=== PATIENT | female | born 1960 | race Hispanic/Latino ===

== ENCOUNTER → 2019-07-03 | Day surgery (SDC) | payer OTHER ==
[2019-06-29 15:26] LABS: BASOPHILS # (AUTO) 0.1 (0.0-0.1); BASOPHILS % 0.8 % (0.0-1.0); EOSINOPHILS # (AUTO) 0.1 (0.0-0.4); EOSINOPHILS % 1.6 % (0.0-6.0); LYMPHOCYTES # (AUTO) 2.6 (1.0-3.2); LYMPHOCYTES % 33.2 % (18.0-39.1); MEAN CORPUSCULAR HEMOGLOBIN 29.7 pg (28-32); MEAN CORPUSCULAR HGB CONC 32.4 g/dL (31-35); MEAN CORPUSCULAR VOLUME 91.6 fL (81-99); MONOCYTES # (AUTO) 0.7 (0.2-0.8); MONOCYTES % 9.2 % (4.4-11.3); NEUTROPHILS # (AUTO) 4.2 (2.1-6.9); NEUTROPHILS % 54.9 % (38.7-80.0); PLATELET COUNT 341 x10e3/uL (140-360); RED BLOOD COUNT 4.04 x10e6/uL (3.6-5.1); RED CELL DISTRIBUTION WIDTH 14.1 % (11.7-14.4)
[2019-06-29 15:43] LABS: ANION GAP 12.6 mmol/L (8-16); BLOOD UREA NITROGEN 12 mg/dL (7-26); BUN/CREATININE RATIO 14 (6-25); CALCIUM 9.5 mg/dL (8.4-10.2); CARBON DIOXIDE 26 mmol/L (22-29); CHLORIDE 106 mmol/L (98-107); CREATININE, SERUM 0.85 mg/dL (0.57-1.11); EST GLOMERULAR FILTRATION RATE > 60 ML/MIN (60-); GLUCOSE 81 mg/dL (74-118); POTASSIUM 3.6 mmol/L (3.5-5.1); SODIUM 141 mmol/L (136-145)
--- NOTE | 2019-06-29 15:48 | Diagnostic Imaging Report ---
Chest, 2 views, 06/29/2019. History: Preop, foot surgery. Comparison: None available. Findings: The cardiomediastinal silhouette and pulmonary vasculature are within normal limits. The lungs are clear without evidence of consolidation or pleural effusion. Degenerative changes are present throughout the thoracic spine. Surgical screws are present in both humeral heads. There are no acute osseous or soft tissue abnormalities. Impression: No acute cardiopulmonary abnormality. Signed by: Rivas Barlow on 06/29/2019 3:44 PM
[~2019-07-03] MED LIST: ASPIR 8181 MG PO; ATORVASTATIN CA20 MG PO; BETAMETHASONE DISODIUM PHOS 6 MG/ML VIAL ONE; BUPIVACAINE HCL 0.5% INJ 30 ML VIAL INJ ONE; CEFAZOLIN SOD 1 GM/NS 50ML 100 ML IV ONE; DEXAMETHASONE SOD PHOS INJ 4 MG/ML VIAL ONE; EPHEDRINE SULFATE INJ 50 MG/10 ML SYR ONE; FENTANYL CITRATE/PF 100MCG/2 ML INJ ONE; GABAPENTIN300 MG PO; KETOROLAC TROMETHAMINE 30 MG/ML VIAL ONE; LIDOCAINE HCL 1% LOCAL INJ 20 ML VIAL ONE; LIDOCAINE HCL 2% LOCAL INJ 5 ML SDV VIAL INJ ONE; MIDAZOLAM HCL 2 MG/2 ML VIAL ONE; MULTI-VITAMIN1 EACH PO; MUPIROCIN 2% OINT 22 GM TUBE ONE; MYRBETRIQ50 MG PO; ONDANSETRON HCL INJ 2MG/ML 2ML 2 MG/ML VIAL ONE; OXYBUTYNIN CHLOR5 MG PO; PLAQUENIL200 MG PO; PROPOFOL IV EMULSION 10 MG/ML 20 ML VIAL ONE; SEVOFLURANE INHAL SOLN 250 ML PEN BTL ONE; SIMVASTATIN20 MG PO; SM NATURAL BAL100 MG PO; VIT D3 PO
--- OUTSIDE RECORDS SUMMARY | 2019-07-03 05:29 | XMS REPORT | Summary of Care ---
Author Author KENNY ECHEVERRIA M.D. [facility] Unknown Address Unknown Phone Unavailable Care Team Providers Care Immigration Law Specialist Name Role Phone KENNY ECHEVERRIA M.D. Unavailable Unavailable CARLOS YOON MD Unavailable Unavailable EARL MATHEWS, BARBARA JIMENEZ Unavailable Unavailable Functional Status Name Dates Details Functional status health issues are not documented Status: Name Dates Details Cognitive status health issues are not documented Status: Problems Name Dates Details Aftercare following surgery (V58.89, Z48.89) Status: Active Medications Name Dates Details Simvastatin TABS Active Pantoprazole Sodium 40 MG Intravenous Solution Reconstituted * Refills: 0 Active Celecoxib 200 MG Oral Capsule * Refills: 0 Active Oxybutynin Chloride ER 10 MG Oral Tablet Extended Release 24 Hour * Refills: 0 Active hydroCHLOROthiazide TABS * Refills: 0 Active Allergies and Adverse Reactions Name Dates Details No Known Drug Allergies (Allergy) Status: Active Past Medical History Name Dates Details History of Cervical dysphagia (787.29, R13.19) Status: Resolved History of Choking (933.1, T17.308A) Status: Resolved History of cough Status: Resolved History of heartburn (V12.79, Z87.898) Status: Resolved History of hiatal hernia (V12.79, Z87.19) Status: Resolved History of hypercholesterolemia (V12.29, Z86.39) Status: Resolved History of Overactive bladder (596.51, N32.81) Status: Resolved History of Postprandial epigastric pain (789.06, R10.13) Status: Resolved History of vomiting (V13.89, Z87.898) Status: Resolved Procedures Procedure Dates Details History of Hysterectomy Completed History of Section Completed History of Foot surgery Completed History of Shoulder Surgery Completed History of Elbow surgery Completed History of Toupet fundoplication laparoscopic Completed Immunization Name Dates Details Immunizations not documented Family History Name Dates Details No pertinent family history (V49.89, Z78.9) Status: Active Name Dates Details No pertinent family history (V49.89, Z78.9) Status: Active Social History Name Dates Details - Status: Name Dates Details Never smoker Vital Signs Date Test Result Details [id number] BP Systolic 145 mm[Hg] Status: Comments: Location: RUE; Position: Sitting BP Diastolic 84 mm[Hg] Status: Comments: Location: RUE; Position: Sitting Height 64 in Status: Weight 173.5 lb Status: Body Mass Index Calculated 29.78 kg/m2 Status: Body Surface Area Calculated 1.84 m2 Status: Temperature 98.4 f Status: Comments: Method: Oral Heart Rate 78 /min Status: Comments: Quality: Normal Respiration Rate 18 /min Status: Comments: Quality: Normal O2 SAT 95 % Status: Comments: Source: RA Results Date Description Value Details Results not documented Plan of Care Name Dates Details Planned Observations Planned Goals not documented Interventions Provided Plan* I will see her again in 9 months for a follow up Discussion/Summary* Indications of antireflux surgery include: complicated GERD such as a large hiatal hernia, presence of Jacobs's esophagus and/or intractable stricture and severe regurgitation and respiratory symptoms. Instructions Name Dates Details Instructions not documented Encounters Appointment; KENNY ECHEVERRIA M.D. Encounter Diagnosis: Problem not documented On: 18-Jan-2019 15:00 Appointment; KENNY ECHEVERRIA M.D. Encounter Diagnosis: Problem not documented On: 22-Feb-2019 7:45 Appointment; KENNY ECHEVERRIA M.D. Encounter Diagnosis: Problem not documented On: 24-May-2019 9:15
--- OUTSIDE RECORDS SUMMARY | 2019-07-03 05:29 | XMS REPORT ---
Author Author [facility] Address Unknown Phone Unavailable Care Team Providers Care Highway Painter Helper Name Role Phone JADON RASMUSSEN Unavailable Unavailable Problems This patient has no known problems. Allergies, Adverse Reactions, Alerts This patient has no known allergies or adverse reactions. Medications This patient has no known medications. Encounters Start Date/Time End Date/Time Encounter Type Admission Type Attending [facility] Care Department Encounter ID 2019-02-02 08:22:00 2019-02-02 08:22:00 Outpatient [id number] 2019-01-11 11:23:00 2019-01-11 11:23:00 Outpatient [id number] 2018-12-30 14:14:00 2018-12-30 14:14:00 Outpatient [id number] 2018-12-30 09:11:00 2018-12-30 09:11:00 Emergency E [id number] Results Test Description Test Time Test Comments Text Results Atomic Results Result Comments CHEST 2 VIEWS 2019-06-29 15:44:00 [facility] [address] [place] [address] Patient Name: ANÍBAL HASSAN MR #: [id number] : 1960 Age/Sex: 58/F Req #: [id number] Adm Physician: Ordered by: JADON RASMUSSEN DPM Report #: [id number] Location: OR Room/Bed: Procedure: [id number] DX/CHEST 2 VIEWS Exam Date: Exam Time: REPORT STATUS: Signed Chest, 2 views, 06/29/2019. History: Preop, foot surgery. Co mparison: None available. Findings: The cardiomediastinal silhouette and pulmonary vasculature are within normal limits. The lungs are clear without evidence of consolidation or pleural effusion. Degenerative changes are present throughout the thoracic spine. Surgical screws are present in both humeral heads. There are no acute osseous or soft tissue abnormalities. Impression: No acute cardiopulmonary abnormality. Signed by: Tyrone Barlow on 06/29/2019 3:44 PM Dictated By: TYRONE BARLOW MD [id number] Transcribed By: ANGY on 06/29/19 1543 COPY TO: JADON RASMUSSEN DPM
[2019-07-03 09:55] VITALS: BP 136/88
--- NOTE | 2019-07-03 10:20 | Diagnostic Imaging Report ---
EXAMINATION: FOOT LEFT AP LAT INDICATION: Postoperative COMPARISON: None FINDINGS: Portable AP and lateral radiographs of the left foot demonstrate immediate postoperative changes of first metatarsal osteotomy and fixation with a pin and threaded screw as well as K wire fixation across the fourth DLP and PIP joints. Alignment appears near-anatomic. No unexpected fracture. Surgical drain in place. Overlying gauze material obscures fine bony detail. IMPRESSION: Postoperative findings as above. Signed by: Adan Farias MD on 07/03/2019 10:17 AM
--- NOTE | 2019-07-03 11:26 | Operative Report ---
DATE OF PROCEDURE: 07/03/2019 SURGEON: Stef Carter DPM PREOPERATIVE DIAGNOSES: 1. Painful hallux valgus deformity, left foot. 2. Painful contracted hammertoes 4th digit, left foot. 3. Painful contracted hammertoes 5th digit, left foot. 4. Painful plantar calcaneal heel spur with plantar fasciitis, left foot. 5. Tarsal tunnel syndrome, left foot. POSTOPERATIVE DIAGNOSES: Confirmed. OPERATIVE PROCEDURES: 1. Josh bunionectomy with screw fixation of left foot. 2. Arthroplasty 4th digits with K-wire fixation of the 4th. 3. Arthroplasty 5th digits. 4. Resection of plantar calcaneal heel spur, left foot. 5. Neurolysis tibial nerve, left foot. 6. Neurolysis medial plantar nerve,left foot. 7. Neurolysis lateral plantar nerve, left foot. 8. Intraoperative use of fluoroscopy. 9. Trigger point shot of cortisone. 10. Application of posterior splint. ANESTHESIA: General. HEMOSTASIS: Pneumatic thigh tourniquet at 350 mmHg. PROCEDURE IN DETAIL: The patient was taken into the operating room, placed on the operating table in supine position. Following induction of general anesthesia by the anesthesiologist, Webril wraps were placed on the patient's left thigh followed by application of left thigh tourniquet. The left lower extremity was then prepped and draped in the usual aseptic manner following procedures then performed. Procedure #1: Josh bunionectomy with screw fixation of left foot. Attention was directed to the dorsal medial aspect of the 1st MPJ where a 6 cm linear incision was performed. Incision was deepened down to the joint capsule. Longitudinal capsulotomy was then performed exposing the dorsomedial exostosis of the 1st metatarsal head. Using oscillating saw, dorsomedial exostosis was excised from the operation site in toto a V-osteotomy was then performed from medial to lateral. Capital fragment was then transpositioned laterally. Upon adequate surgical and anatomical reduction utilizing proper AO technique, a 2.0 x 12 mm cortical screw in conjunction with a buried 0.045 K-wire was used to achieve stability of osteotomy site. All redundant bone medially was excised via the use of an oscillating saw and rotating bur. Procedure #2 and 3: Arthroplasty 4th and 5th digits with K-wire fixation of 4th. Attention was then directed to the dorsal aspect of the above-mentioned toes, where a 3 cm linear incision was performed. Incision was deepened down to the joint capsule. Transverse capsulotomy was then performed exposing the head of the proximal phalanx. Via the use of an oscillating saw, head of proximal phalanx these were excised from the operation site in toto. All rough and bony edges were rasped smooth. Fourth toe was still noted to be contracted so a 0.045 K-wire was introduced up to metatarsophalangeal joint to achieve proper anatomical reduction. Procedure #4: Resection of plantar calcaneal heel spur, left foot. Attention was then directed to the medial aspect of the left heel, where a 5 to 6 cm linear incision was performed. Incision was deepened down to the plantar fascia level. The medial one-half of the plantar fascia was resected from its insertion site, exposing the plantar calcaneal spur. Utilizing a reciprocating rasp, the plantar calcaneal spur was excised from the operation site in toto. Procedure #5, 6 and 7: Neurolysis tibial nerve, neurolysis medial plantar nerve and neurolysis of lateral plantar nerve of the left lower extremity. Attention was then directed to the medial aspect of the left talotibial joint where a curvilinear incision was performed posterior to the medial malleolus. The incision was deepened via sharp and blunt dissection being careful to retract any vital structures and ligate any superficial vessels as necessary. Utilizing meticulous dissection, the flexor retinaculum was then clearly visualized and cut exposing the tibial nerve. Utilizing blunt dissection, the tibial nerve was then neurolysed. The incision was then carried down to the saida pedis and followed down to the medial and lateral plantar nerves where the medial and lateral plantar nerves were also freed from any soft tissue adhesions via blunt dissection. All areas were then copiously flushed with sterile antibiotic solution and suction. Procedure #8: Intraoperative use of fluoroscopy was then used to make sure proper alignment fixation was achieved. Closure was then obtained utilizing 3-0 Vicryl, 4-0 Vicryl and 4-0 Nylon for capsule, subcutaneous tissue and skin respectively to the left. Procedure #9: Trigger point shot of cortisone was then given to the 1st and 4th interspace and also the medial aspect of the left heel. Then, approximately 15 mL of 0.5% plain Marcaine plus 10 mL of 1% Xylocaine plain were used to achieve local anesthesia of above-mentioned surgical area. Sterile dressing was applied. Upon release of thigh tourniquet, blood hyperemia was noted immediate to all digits of the patient's left foot. Prior to closure, a TLS drain was inserted to the left heel for any type of hematoma formation. Procedure #10: Properly placed posterior splint was then applied keeping the foot at 90 degrees with respect to the leg to try for any type of postop complications. The patient was then transferred from the OR to recovery room with vital signs stable and neurovascular status intact. No intraoperative complications were encountered. Blood loss from the surgery was minimal. The patient to remain nonweightbearing with the aid of crutches. Keep her foot elevated and is to apply an ice pack to the ankle joint area. GREY Hooper/GARDENIAL /[id number]
== END | disposition home or self-care (01) ==
LOC: OR 05:23
PROVIDERS: ATTEND Podiatrist Foot Surgery
DX: M20.12 Hallux valgus (acquired), left foot (principal); M20.42 Other hammer toe(s) (acquired), left foot; M77.32 Calcaneal spur, left foot; G57.52 Tarsal tunnel syndrome, left lower limb; M79.672 Pain in left foot; Z01.810 Encounter for preprocedural cardiovascular examination; Z01.812 Encounter for preprocedural laboratory examination; Z01.811 Encounter for preprocedural respiratory examination; M72.2 Plantar fascial fibromatosis
CPT/HCPCS: 28119; 28285 ×2; 28296; 36415; 64704; 64708; 71046; 73620; 80048; 85025; 93005; C1713; J0690; J0720; J1100; J1885; J2001 ×2; J2250; J2405; J2704; J3010